=== PATIENT | female | born 1960 | race Caucasian/White ===

== ENCOUNTER 2020-06-17 10:34 | Emergency (ER) | payer BC | END 2020-06-17 12:10 | disposition home or self-care (01) | LOC: EDH 10:34 | DX: S60.222A Contusion of left hand, initial encounter (principal); I10 Essential (primary) hypertension; Z90.49 Acquired absence of other specified parts of digestive tract; W05.1XXA Fall from non-moving nonmotorized scooter, initial encounter; Y93.I9 Activity, other involving external motion; Y92.89 Other specified places as the place of occurrence of the external cause; Y99.8 Other external cause status | CPT/HCPCS: 73130 ==